=== PATIENT | male | born 1960 | race Caucasian/White ===

== ENCOUNTER → 2023-08-04 | Emergency (ER) | payer OTHER ==
--- NOTE | 2023-08-04 10:21 | RAD REPORT ---
EXAM DESCRIPTION: RAD - Shoulder Left 2 View - 08/04/2023 10:03 am CLINICAL HISTORY: PAIN COMPARISON: No comparisons TECHNIQUE: Internal and external rotation views of the left shoulder were obtained. FINDINGS: There is no fracture or dislocation. AC joint is normal in appearance. No acute or suspici ous findings. IMPRESSION: Negative two-view left shoulder examination.
--- NOTE | 2023-08-04 10:43 | RAD REPORT ---
EXAM DESCRIPTION: CT - [id number] - 08/04/2023 9:52 am CLINICAL HISTORY: TRAUMA COMPARISON: No comparisons TECHNIQUE: Axial thin cut noncontrast CT images of the head were obtained. Axial thin cut noncontrast CT images of the cervical spine were obtained. Multiplanar reformatted images were generated and reviewed. All CT scans are performed using dose optimization technique as appropriate and may include automated exposure control or mA/KV adjustment according to patient size. FINDINGS: CT HEAD WITHOUT CONTRAST: Right high frontal small volume subarachnoid hemorrhage at the depth of the superior frontal sulcus. Similar small volume subarachnoid hemorrhage along the left high parietal parasagittal sulci, with a markedly hyperdense focus. In both locations there may be some extension within the cortex. Subtle figueroa barachnoid hemorrhage opacifying the deep left parietal sulci more inferiorly. No hydrocephalus or extra-axial collection is identified.No areas of brain edema or midline shift. The paranasal sinuses and mastoids are clear.The calvarium is intact. CT CERVICAL SPINE WITHOUT CONTRAST: No fracture or subluxation.No prevertebral soft tissues swelling is identified. IMPRESSION: Small foci of subarachnoid hemorrhage in the high right frontal and left parietal lobe, appear to mostly involves the subarachnoid space, although the larger foci in the high right frontal and left parasagittal parietal lobe may have some cortical extension. Additional evaluation by MRI is recommended following improvement or resolution of the hemorrhage to exclude an underlying focal les ions such as cavernomas. No acute traumatic cervical spine findings. The findings were communicated to Abebe Bonner on 08/04/2023 at 10:39 hours.
--- NOTE | 2023-08-04 10:54 | EDPHYS ---
Physician Documentation [facility] Name: Kulwant Ryder Age: 62 yrs Sex: Male : 1960 Arrival Date: 08/04/2023 Time: 09:39 Bed 2 Private MD: ED Physician Abebe Bonner HPI: 08/04 09:52 This 62 yrs old Male presents to ER via EMS with complaints of Head Injury With rt LOC-Adult. 09:52 Patient presents to the ED with slip and fall at work. He states that he had an ICS rt but, fell backwards hitting his head. Reports loss of consciousness, unclear how long he has been out for. When he woke up he was dizzy, had nausea and vomiting, resolved after Zofran administration. His reports a headache. States that the pain radiates down the left side of his neck into his left shoulder. Denies other acute complaints at this time, symptoms are moderate in severity, no other aggravating or alleviating factors.. Historical: - Allergies: 09:43 No Known Allergies; ph - PMHx: 09:43 Diabetes mellitus; Gout; Hypercholesterolemia; ph - Immunization history:: Adult Immunizations unknown. - Social history:: Smoking status: Patient denies any tobacco usage or history of. - Family history:: not pertinent. ROS: 09:52 Constitutional: Negative for fever, chills, and weight loss, Cardiovascular: Negative rt for chest pain, palpitations, and edema, Respiratory: Negative for shortness of breath, cough, wheezing, and pleuritic chest pain, Skin: Negative for injury, rash, and discoloration, Psych: Negative for depression, anxiety, suicide ideation, homicidal ideation, and hallucinations, 09:52 Abdomen/GI: Positive for nausea and vomiting, Negative for abdominal pain, 09:52 MS/extremity: Positive for pain, Negative for decreased range of motion, 09:52 Neuro: Positive for headache, loss of consciousness, Exam: :52 Constitutional: This is a well developed, well nourished patient who is awake, alert, rt and in no acute distress. Chest/axilla: Normal chest wall appearance and motion. Nontender with no deformity. No lesions are appreciated. Cardiovascular: Regular rate and rhythm with a normal S1 and S2. No gallops, murmurs, or rubs. Normal PMI, no JVD. No pulse deficits. Respiratory: Lungs have equal breath sounds bilaterally, clear to auscultation and percussion. No rales, rhonchi or wheezes noted. No increased work of breathing, no retractions or nasal flaring. Abdomen/GI: Soft, non-tender, with normal bowel sounds. No distension or tympany. No guarding or rebound. No evidence of tenderness throughout. Skin: Warm, dry with normal turgor. Normal color with no rashes, no lesions, and no evidence of cellulitis. Neuro: Awake and alert, GCS 15, oriented to person, place, time, and situation. Cranial nerves II-XII grossly intact. Motor strength 5/5 in all extremities. Sensory grossly intact. Cerebellar exam normal. Normal gait. Psych: Awake, alert, with orientation to person, place and time. Behavior, mood, and affect are within normal limits. 09:52 Head/face: Small contusion on posterior scalp, no lacerations, other external evidence of trauma. 09:52 Neck: Left-sided paraspinal tenderness, no midline tenderness or step-offs, 09:52 Musculoskeletal/extremity: Minimal tenderness at left shoulder, full range of motion, no deformities noted. Vital Signs: 09:41 BP 122 / 94; Pulse 79; Resp 18; Temp 97.1; Pulse Ox 98% on R/A; Weight 117.93 kg; ph Height 6 ft. 1 in. ; 11:03 BP 127 / 89; Pulse 71; Resp 18; Temp 98; Pulse Ox 99% on R/A; ph 09:41 Body Mass Index 34.30 (117.93 kg, 185.42 cm) ph Lukas Coma Score: 09:47 Eye Response: spontaneous(4). Motor Response: obeys commands(6). Verbal Response: ph oriented(5). Total: 15. 11:03 Eye Response: spontaneous(4). Motor Response: obeys commands(6). Verbal Response: ph oriented(5). Total: 15. Trauma Score (Adult): 09:47 Eye Response: spontaneous(1); Verbal Response: oriented(1); Motor Response: obeys ph commands(2); Systolic BP: > 89 mm Hg(4); Respiratory Rate: 10 to 29 per min(4); [place] Score: 15; Trauma Score: 12 11:03 Eye Response: spontaneous(1); Verbal Response: oriented(1); Motor Response: obeys ph commands(2); Systolic BP: > 89 mm Hg(4); Respiratory Rate: 10 to 29 per min(4); Lukas Score: 15; Trauma Score: 12 MDM: 09:40 Patient medically screened. rt 08/04 09:41 Order name: CT Head C Spine; Complete Time: 10:52 rt 08/04 09:41 Order name: Shoulder Left (2 View) XRAY; Complete Time: 10:24 rt Administered Medications: No medications were administered Disposition Summary: 08/04/23 10:53 Left Against Medical Advice Notes: Location: Home rt Problem: new rt Symptoms: are unchanged rt Condition: Undetermined rt Diagnosis - Traumatic subarachnoid hemorrhage rt Followup: rt - With: Emergency Department - When: - Reason: If symptoms return, Worsening of condition, Further diagnostic work-up, Recheck today's complaints, Continuance of care Discharge Instructions: - Discharge Summary Sheet rt - Subarachnoid Hemorrhage rt Signatures: Dispatcher [employer] Arianna Gonzales RN RN Abebe Chávez MD MD rt
--- NOTE | 2023-08-04 10:54 | ER ---
Nurse's Notes [facility] Name: Kulwant Ryder Age: 62 yrs Sex: Male : 1960 Arrival Date: 08/04/2023 Time: 09:39 Bed 2 Private MD: Diagnosis: Traumatic subarachnoid hemorrhage Presentation: 08/04 09:41 Chief complaint: EMS states: Pt was getting out of [address], slipped on ice and fell ph backwards hitting back of head on concrete, +LOC, unsure of how long he was unconscious, does NOT take blood thinners, + N/V, c/o pain to back of head, neck and L shoulder, 20G to RAC, 4 mg Zofran given, VSS. Coronavirus screen: Vaccine status: Patient reports receiving the 2nd dose of the covid vaccine. Ebola Screen: No symptoms or risks identified at this time. Initial Sepsis Screen: Does the patient meet any 2 criteria? No. Patient's initial sepsis screen is negative. Does the patient have a suspected source of infection? No. Patient's initial sepsis screen is negative. Risk Assessment: Do you want to hurt yourself or someone else? Patient reports no desire to harm self or others. Onset of symptoms was August 04, 2023. 09:41 Method Of Arrival: EMS: [facility] 09:41 Acuity: BENITA 3 ph 09:47 Care prior to arrival: Medication(s) given: zofran 4 mg, IV initiated. 20 GA, in the ph right forearm. Mechanism of Injury: Fall from standing position. Trauma event details: Injury occurred in the [facility], Injury occurred: in an industrial place of business Injury occurred: August 04, 2023. 10:54 Acuity: BENITA 2 ap3 Triage Assessment: 09:44 General: Appears in no apparent distress. comfortable, Behavior is calm, cooperative, ph appropriate for age. Pain: Complains of pain in parietal area. Pain: Complains of pain in neck and L shoulder. Neuro: Level of Consciousness is awake, alert, obeys commands, Oriented to person, place, time, situation, Reports headache. Cardiovascular: Capillary refill < 3 seconds in bilateral fingers Patient's skin is warm and dry. Respiratory: Airway is patent Respiratory effort is even, unlabored, Respiratory pattern is regular, symmetrical. GI: Reports nausea, vomiting. Derm: Skin is pink, warm \T\ dry. Musculoskeletal: Circulation, motion, and sensation intact. Range of motion: intact in all extremities. Historical: - Allergies: : No Known Allergies; ph - PMHx: :43 Diabetes mellitus; Gout; Hypercholesterolemia; ph - Immunization history:: Adult Immunizations unknown. - Social history:: Smoking status: Patient denies any tobacco usage or history of. - Family history:: not pertinent. Screenin:45 [facility] ED Fall Risk Assessment (Adult) History of falling in the last 3 months, ph including since admission Yes- single mechanical fall (1 pt) Confusion or Disorientation No (0 pts) Intoxicated or Sedated No (0 pts) Impaired Gait No (0 pts) Mobility Assist Device Used No (0 pt) Altered Elimination No (0 pt) Score/Fall Risk Level 0 - 2 = Low Risk Oriented to surroundings, Maintained a safe environment, Provided non-skid footwear. Abuse screen: Denies threats or abuse. Denies injuries from another. Nutritional screening: No deficits noted. Tuberculosis screening: No symptoms or risk factors identified. Primary Survey: :46 NO uncontrolled hemorrhage observed. A: The client is awake and alert. The airway is ph patent. Breathing/Chest: Spontaneous respiratory effort, equal unlabored respirations, breath sounds clear bilaterally, regular pattern, symmetrical chest rise and fall. Circulation: No external hemorrhage present. Regular and strong central pulse, skin warm/dry/normal color. Disability Pupils are equal, round, reactive to light and accommodation. Exposure/Environment: Obvious injury(ies) are noted at this time: hematoma to back of head. 11:13 Reassessment Alertness and Airway: Awake and alert. The airway is patent. Breathing: ph Spontaneous respiratory effort, equal unlabored respirations, breath sounds clear bilaterally, regular pattern with symmetrical chest rise and fall. Circulation: No external hemorrhage noted. Regular and strong central pulse, skin warm/dry/normal color. Disability: Pupils Pupils are equal, round, reactive to light and accomodation. Assessment: :46 General: Appears in no apparent distress. comfortable, well groomed, Behavior is calm, ph cooperative. Pain: Complains of pain in back of head, neck and L shoulder. Neuro: Level of Consciousness is awake, alert, obeys commands, Oriented to person, place, time, situation, Reports headache. Cardiovascular: Capillary refill < 3 seconds in bilateral fingers Patient's skin is warm and dry. Respiratory: Airway is patent Respiratory effort is even, unlabored. GI: Reports nausea, vomiting. Derm: Skin is pink, warm \T\ dry. 09:48 Reassessment: Pt taken to radiology by thang. ph 10:53 Reassessment: Patient appears in no apparent distress at this time. Patient and/or ph family updated on plan of care and expected duration. Pain level reassessed. Patient is alert, oriented x 3, equal unlabored respirations, skin warm/dry/pink. Dr Bonner at bedside to speak w/ pt about transfer to another facility for subarachnoid bleed r/t fall, pt stating repeatedly that he does not wish to be transferred. Many attempts by ERP to convince pt to be transferred for further evaluation, pt states that he wishes to go back to his truck to rest for the remainder of the day and that he will return to ED tomorrow for another head CT to see if bleeding has worsened. Pt to leave AMA. Vital Signs: 09:41 BP 122 / 94; Pulse 79; Resp 18; Temp 97.1; Pulse Ox 98% on R/A; Weight 117.93 kg; ph Height 6 ft. 1 in. ; 11:03 BP 127 / 89; Pulse 71; Resp 18; Temp 98; Pulse Ox 99% on R/A; ph 09:41 Body Mass Index 34.30 (117.93 kg, 185.42 cm) ph Lukas Coma Score: 09:47 Eye Response: spontaneous(4). Motor Response: obeys commands(6). Verbal Response: ph oriented(5). Total: 15. 11:03 Eye Response: spontaneous(4). Motor Response: obeys commands(6). Verbal Response: ph oriented(5). Total: 15. Trauma Score (Adult): 09:47 Eye Response: spontaneous(1); Verbal Response: oriented(1); Motor Response: obeys ph commands(2); Systolic BP: > 89 mm Hg(4); Respiratory Rate: 10 to 29 per min(4); Lukas Score: 15; Trauma Score: 12 11:03 Eye Response: spontaneous(1); Verbal Response: oriented(1); Motor Response: obeys ph commands(2); Systolic BP: > 89 mm Hg(4); Respiratory Rate: 10 to 29 per min(4); Lukas Score: 15; Trauma Score: 12 ED Course: 09:40 Patient arrived in ED. ph 09:40 Abebe Bonner MD is Attending Physician. rt 09:43 Triage completed. ph 09:45 Arm band placed on Patient placed in an exam room, on a stretcher, on air sampling and monitoring, ph on pulse oximetry. 09:48 Patient has correct armband on for positive identification. Bed in low position. Call ph light in reach. Side rails up X2. Pulse ox on. NIBP on. Door closed. Noise minimized. 09:48 Thermoregulation: warm blanket given to patient. ph 09:48 Patient maintains SpO2 saturation greater than 95% on room air. ph 09:52 CT Head C Spine In Process Unspecified. EDMS 10:00 Shoulder Left (2 View) XRAY In Process Unspecified. EDMS 10:49 Arianna Centeno RN is Primary Nurse. ph 11:13 No provider procedures requiring assistance completed. IV discontinued, intact, ph bleeding controlled, No redness/swelling at site. Pressure dressing applied. Administered Medications: No medications were administered Medication: 09:48 VIS not applicable for this client. ph Output: 09:47 Urine: 0ml; Total: 0ml. ph Outcome: 11:13 AMA AMA form signed ph 11:13 Patient left the ED. ph Signatures: Dispatcher [employer] EDKS Arianna Centeno RN RN ph Prokisch, Amanda, RN RN ap3 Abebe Bonner MD MD rt
[2023-08-04 11:43] VITALS: BP 127/89; TEMP 98; O2SAT 99
== END ==
LOC: ER 09:39
DX: S06.6X9A Traumatic subarachnoid hemorrhage with loss of consciousness of unspecified duration, initial encounter (principal); S00.03XA Contusion of scalp, initial encounter; W01.0XXA Fall on same level from slipping, tripping and stumbling without subsequent striking against object, initial encounter; R11.2 Nausea with vomiting, unspecified
CPT/HCPCS: 70450; 72125

== ENCOUNTER → 2023-08-04 | Emergency (ER) | payer OTHER ==
[~2023-08-04] MED LIST: MAGNES/ALUMIN/SIMET 30ML UCUP ONE
[2023-08-04 12:22] LABS: Absolute Lymphocytes (CBC) 1.8 K/uL (0.7-4.9); Lymphocytes % 16.9 % (15.3-44.8); MCV 83.4 fL (80-100); Platelets 272 thou/uL (152-406); RBC Red Blood Cell Count 5.39 M/uL (4.33-5.43)
[2023-08-04 12:31] LABS: Protime INR 0.93
--- NOTE | 2023-08-04 12:36 | EDPHYS ---
Physician Documentation [facility] Name: Kulwant Ryder Age: 62 yrs Sex: Male : 1960 Arrival Date: 08/04/2023 Time: 11:55 Bed 2 Private MD: ED Physician Abebe Bonner HPI: 08/04 14:12 This 62 yrs old Male presents to ER via Ambulatory with complaints of Head Injury-Adult.rt 14:12 Patient had a previous fall, diagnosed with traumatic subarachnoid hemorrhage, left rt AGAINST MEDICAL ADVICE, returns to the ER as he changed his mind. Please see prior HPI for more details. Denies any complaints.. Historical: - Allergies: 12:02 No Known Allergies; ll1 - PMHx: 12:02 diabetes mellitus; Gout; Hypercholesterolemia; ll1 - Immunization history:: Adult Immunizations up to date. - Social history:: Smoking status: Patient denies any tobacco usage or history of. ROS: 14:12 Constitutional: Negative for fever, chills, and weight loss, Cardiovascular: Negative rt for chest pain, palpitations, and edema, Respiratory: Negative for shortness of breath, cough, wheezing, and pleuritic chest pain, MS/Extremity: Negative for injury and deformity, Skin: Negative for injury, rash, and discoloration, 14:12 Abdomen/GI: Positive for nausea, vomiting, 14:12 Neuro: Positive for headache, loss of consciousness, Exam: 14:12 Constitutional: This is a well developed, well nourished patient who is awake, alert, rt and in no acute distress. Head/Face: Normocephalic, atraumatic. Chest/axilla: Normal chest wall appearance and motion. Nontender with no deformity. No lesions are appreciated. Cardiovascular: Regular rate and rhythm with a normal S1 and S2. No gallops, murmurs, or rubs. Normal PMI, no JVD. No pulse deficits. Respiratory: Lungs have equal breath sounds bilaterally, clear to auscultation and percussion. No rales, rhonchi or wheezes noted. No increased work of breathing, no retractions or nasal flaring. Abdomen/GI: Soft, non-tender, with normal bowel sounds. No distension or tympany. No guarding or rebound. No evidence of tenderness throughout. Skin: Warm, dry with normal turgor. Normal color with no rashes, no lesions, and no evidence of cellulitis. MS/ Extremity: Pulses equal, no cyanosis. Neurovascular intact. Full, normal range of motion. Neuro: Awake and alert, GCS 15, oriented to person, place, time, and situation. Cranial nerves II-XII grossly intact. Motor strength 5/5 in all extremities. Sensory grossly intact. Cerebellar exam normal. Normal gait. Vital Signs: 12:02 Resp 17; Weight 117.93 kg; Height 6 ft. 1 in. ; Pain 8/10; ll1 12:51 BP 129 / 86; Pulse 89; Pulse Ox 97% on R/A; ap3 14:21 BP 124 / 80; Pulse 91; Resp 18; Pulse Ox 98% on R/A; ph 14:57 BP 113 / 80; Pulse 92; Resp 18; Pulse Ox 100% on R/A; ph 12:02 Body Mass Index 34.30 (117.93 kg, 185.42 cm) ll1 12:02 Pain Scale: Adult ll1 [place] Coma Score: 12:02 Eye Response: spontaneous(4). Motor Response: obeys commands(6). Verbal Response: ll1 oriented(5). Total: 15. MDM: 12:06 Patient medically screened. rt 14:12 Differential diagnosis: Intracranial bleed-. Data reviewed: vital signs, nurses notes, rt old medical records, radiologic studies. Consideration of Admission/Observation Patient requires transfer to trauma center for higher level of care. Management of patient was discussed with the following: Gift Shop Clerk: Discussed with Dr. Mcfadden, neurosurgeon with [facility], accepts patient in transfer. Counseling: I had a detailed discussion with the patient and/or guardian regarding the historical points, exam findings, and any diagnostic results supporting the discharge/admit diagnosis, radiology results, the need to transfer to another facility. 08/04 12:06 Order name: CBC with Diff; Complete Time: 12:41 rt 08/04 12:06 Order name: CMP; Complete Time: 12:41 rt 08/04 12:06 Order name: PT-INR; Complete Time: 12:41 rt 08/04 12:06 Order name: Ptt, Activated; Complete Time: 12:41 rt Administered Medications: 14:56 Drug: Alum-Mag Hydroxide-Simeth PO Suspension (200 mg-200 mg-20 mg/5 mL) 30 ml PO once ph Route: PO; Disposition Summary: 08/04/23 12:35 Transfer Ordered Notes: Transfer Location: [facility] rt Reason: Higher level of care rt Condition: Serious rt Problem: new rt Symptoms: are unchanged rt Accepting Physician: (08/04/23 18:47) bd Diagnosis - Traumatic subarachnoid hemorrhage rt Forms: - Medication Reconciliation Form rt - SBAR form rt Signatures: Dispatcher [employer] EDGosia Joel Patricia RN RN Katelynn Duran RN RN ll1 Abebe Bonner MD MD rt Corrections: (The following items were deleted from the chart) 18:47 12:35 rt bd
--- NOTE | 2023-08-04 12:36 | ER ---
Nurse's Notes [facility] Name: Kulwant Ryder Age: 62 yrs Sex: Male : 1960 Arrival Date: 08/04/2023 Time: 11:55 Bed 2 Private MD: Diagnosis: Traumatic subarachnoid hemorrhage Presentation: 08/04 12:02 Chief complaint: Patient states: Left AMA 45 min ago. Slipped on ice and hit head ll1 earlier today. Coronavirus screen: Client denies travel out of the [place] in the last 14 days. At this time, the client does not indicate any symptoms associated with coronavirus-19. Ebola Screen: Patient denies travel to an Ebola-affected area in the 21 days before illness onset. Mechanism of Injury: resulted from a fall. Initial Sepsis Screen: Does the patient meet any 2 criteria? No. Patient's initial sepsis screen is negative. Does the patient have a suspected source of infection? No. Patient's initial sepsis screen is negative. Risk Assessment: Do you want to hurt yourself or someone else? Patient reports no desire to harm self or others. Onset of symptoms was August 04, 2023. 12:02 Method Of Arrival: Ambulatory ll1 12:02 Acuity: BENITA 2 ll1 Historical: - Allergies: 12:02 No Known Allergies; ll1 - PMHx: 12:02 diabetes mellitus; Gout; Hypercholesterolemia; ll1 - Immunization history:: Adult Immunizations up to date. - Social history:: Smoking status: Patient denies any tobacco usage or history of. Screenin:50 [facility] ED Fall Risk Assessment (Adult) History of falling in the last 3 months, ap3 including since admission Yes- single mechanical fall (1 pt) Confusion or Disorientation No (0 pts) Intoxicated or Sedated No (0 pts) Impaired Gait No (0 pts) Mobility Assist Device Used No (0 pt) Altered Elimination No (0 pt). Abuse screen: Denies threats or abuse. Nutritional screening: No deficits noted. Tuberculosis screening: No symptoms or risk factors identified. Assessment: 12:49 Neuro: Level of Consciousness is awake, alert, obeys commands, Oriented to person, ap3 place, time, situation, Appropriate for age Gait is steady, Speech is normal, Facial symmetry appears normal. 12:50 General: Appears in no apparent distress. Behavior is calm, cooperative, appropriate ap3 for age. Cardiovascular: Patient's skin is warm and dry. Respiratory: Airway is patent Respiratory effort is even, unlabored, Respiratory pattern is regular, symmetrical. 18:01 Reassessment: Patient appears in no apparent distress at this time. Patient and/or ph family updated on plan of care and expected duration. Pain level reassessed. Patient is alert, oriented x 3, equal unlabored respirations, skin warm/dry/pink. Attempted to call report to [facility], told that they were currently doing shift change and that the night nurse would call back for report. Vital Signs: 12:02 Resp 17; Weight 117.93 kg; Height 6 ft. 1 in. ; Pain 8/10; ll1 12:51 BP 129 / 86; Pulse 89; Pulse Ox 97% on R/A; ap3 14:21 BP 124 / 80; Pulse 91; Resp 18; Pulse Ox 98% on R/A; ph 14:57 BP 113 / 80; Pulse 92; Resp 18; Pulse Ox 100% on R/A; ph 12:02 Body Mass Index 34.30 (117.93 kg, 185.42 cm) ll1 12:02 Pain Scale: Adult ll1 Luk[place] Coma Score: 12:02 Eye Response: spontaneous(4). Motor Response: obeys commands(6). Verbal Response: ll1 oriented(5). Total: 15. ED Course: 11:57 Patient arrived in ED. rg4 12:02 Arm band placed on Patient placed in an exam room, on a stretcher. ll1 12:03 Triage completed. ll1 12:06 Abebe Bonner MD is Attending Physician. rt 12:15 Ptt, Activated Sent. bc6 12:15 PT-INR Sent. bc6 12:15 CMP Sent. bc6 12:15 CBC with Diff Sent. bc6 12:15 Inserted saline lock: 20 gauge in right antecubital area, using aseptic technique. bc6 Blood collected. 12:49 Patient has correct armband on for positive identification. Bed in low position. Call ap3 light in reach. Side rails up X 1. Pulse ox on. NIBP on. 13:16 Arianna Centeno, WILLY is Primary Nurse. ph 17:56 No provider procedures requiring assistance completed. Patient transferred, IV remains ph in place. Administered Medications: 14:56 Drug: Alum-Mag Hydroxide-Simeth PO Suspension (200 mg-200 mg-20 mg/5 mL) 30 ml PO once ph Route: PO; Medication: 12:50 VIS not applicable for this client. ap3 Outcome: 12:35 ER care complete, transfer ordered by . rt 18:47 Patient left the ED. bd Signatures: Gosia Natarajan Patricia, RN RN ph Garcia, Rubi rg4 Natalia Izaguirre RN RN ap3 Katelynn Duran RN RN ll1 Abebe Bonner MD MD rt Helen Bhat 6
[2023-08-04 12:38] LABS: Bilirubin Total 0.4 mg/dL (0.2-1.0); Potassium 3.9 mEq/L (3.5-5.1); Protein, Total 7.7 g/dL (6.4-8.2)
[2023-08-04 22:23] VITALS: BP 113/80; O2SAT 100
== END ==
LOC: ER 11:55
DX: S06.6X9A Traumatic subarachnoid hemorrhage with loss of consciousness of unspecified duration, initial encounter (principal); R11.2 Nausea with vomiting, unspecified; W01.0XXA Fall on same level from slipping, tripping and stumbling without subsequent striking against object, initial encounter
CPT/HCPCS: 36415; 80053; 85025; 85610; 85730